=== PATIENT | male | born 1980 | race Hispanic/Latino ===

== ENCOUNTER 2021-07-01 12:38 | Emergency (ER) | payer SELFPAY ==
[~2021-07-01] VITALS: Ht 170.2 cm; Wt 80.3 kg
[2021-07-01] MEDS ORDERED: KETOROLAC 60 MG VIAL (30MG/ML) IM SCH (13:00)
[2021-07-01] MEDS ORDERED: IBUP-2088 PO (13:08)
[2021-07-01] MEDS ORDERED: KETOROLAC 60 MG VIAL (30MG/ML) ONE (13:08)
[2021-07-01 14:33] VITALS: BP 120/82
== END 2021-07-01 14:28 | disposition home or self-care (01) ==
LOC: EDH 12:38
DX: S20.219A Contusion of unspecified front wall of thorax, initial encounter (principal); Z79.1 Long term (current) use of non-steroidal anti-inflammatories (NSAID); X58.XXXA Exposure to other specified factors, initial encounter; Y93.89 Activity, other specified; Y92.89 Other specified places as the place of occurrence of the external cause; Y99.8 Other external cause status
CPT/HCPCS: 71111; 93005; 96372; 99283; J1885